=== PATIENT | female | born 1960 | race Caucasian/White ===

== ENCOUNTER 2023-07-11 15:20 | Outpatient (RCR) | payer OTHER | END 2023-07-26 | LOC: WSOH | DX: F32.A Depression, unspecified (principal); Y99.0 Civilian activity done for income or pay; W54.0XXD Bitten by dog, subsequent encounter ==

== ENCOUNTER 2023-12-05 13:23 | Outpatient (RCR) | payer OTHER | END 2023-12-25 | disposition home or self-care (01) | LOC: WSOH | DX: Z77.21 Contact with and (suspected) exposure to potentially hazardous body fluids (principal); W46.0XXD Contact with hypodermic needle, subsequent encounter; Y99.0 Civilian activity done for income or pay; F41.1 Generalized anxiety disorder; F32.A Depression, unspecified; H40.9 Unspecified glaucoma ==

== ENCOUNTER → 2024-07-22 | Outpatient (CLI) | payer BC | LOC: MC.RAD 07:15 | DX: Z12.31 Encounter for screening mammogram for malignant neoplasm of breast (principal) ==